=== PATIENT | male | born 1965 | race Two or more races ===

== ENCOUNTER 2017-10-05 16:30 | Emergency (ER) | payer OTHER ==
[~2017-10-05] VITALS: Ht 175.3 cm; Wt 118.4 kg
[~2017-10-05 16:30] MED LIST: CIPROFLOXACIN500 M2 ORAL
[2017-10-05] MEDS ORDERED: TRAZODONE HCL50 MG ORAL (16:57)
[2017-10-05] MEDS ORDERED: OMEPRAZOLE40 M1 ORAL (16:57)
[2017-10-05] MEDS ORDERED: DOCUSATE SODIU100 M2 ORAL (16:57)
[2017-10-05] MEDS ORDERED: BENAZEPRIL HCL40 MG ORAL (16:57)
[2017-10-05] MEDS ORDERED: SEROQUEL XR150 MG ORAL (16:57)
[2017-10-05] MEDS ORDERED: BUPROPION HCL150 M3 ORAL (16:57)
[2017-10-05] MEDS ORDERED: ASPIR 8181 MG ORAL (16:57)
[2017-10-05] MEDS ORDERED: NEURONTIN300 MG ORAL (16:57)
[2017-10-05] MEDS ORDERED: HYDROXYZINE HCL50 M1 PO (16:59)
[2017-10-05] MEDS ORDERED: SENNA8.6 M2 PO (16:59)
[2017-10-05] MEDS ORDERED: traMADol 50mg tab ORAL ONE (17:00)
[2017-10-05] MEDS ORDERED: IBUPROFEN600 MG ORAL (18:13)
[2017-10-05 18:20] VITALS: BP 135/80
--- NOTE | 2017-10-05 20:32 | Emergency Room Report ---
History of Present Illness General Chief Complaint: Multiple Trauma/Fall Source: Patient Present Illness HPI The patient is a 52-year-old male presenting for left shoulder pain after falling 4 days prior. He states that he tripped and fell onto outstretched hand. Pain is a 7/10 dull ache to the left shoulder and radiates down to the hand. Worse with movement. He states that he fractured his shoulder approximately 10 years prior. No surgery. He denies other symptoms including N , V, F, chills, rash, numbness/tingling, CP, SOB Allergies: Coded Allergies: No Known Allergies (Unverified , 02/27/14) Patient History Past Medical History: see triage record Pertinent Family History: none Reviewed Nursing Documentation: PMH: Agreed, PSxH: Agreed Nursing Documentation-PMH Hx Hypertension: Yes Hx Gastrointestinal Problems: Yes - Hepatitis C, Liver Cirrhosis Review of Systems All Other Systems: negative except mentioned in HPI Physical Exam Vital Signs Date Time Temp Pulse Resp B/P (MAP) Pulse Ox O2 Delivery O2 Flow Rate FiO2 10/05/17 16:40 98.1 70 16 133/74 96 Room Air Sp02 EP Interpretation: reviewed, normal General Appearance: no apparent distress, alert, GCS 15, non-toxic Head: normocephalic, atraumatic Eyes: bilateral eye normal inspection, bilateral eye PERRL ENT: hearing grossly normal, normal pharynx, no angioedema, normal voice Musculoskeletal: back normal, gait/station normal, decreased range of motion - l shoulder, tender - L anterior deltoid Neurologic: alert, oriented x3, responsive, motor strength/tone normal, sensory intact, speech normal Psychiatric: judgement/insight normal, memory normal, mood/affect normal, no suicidal/homicidal ideation Skin: normal color, no rash, warm/dry, well hydrated Lymphatic: no adenopathy Procedures Splinting Splinting : Consent: Verbal Location: l shoulder Pre-Made Type: sling Pre-Proc Neuro Vasc Exam: normal Post-Proc Neuro Vasc Exam: normal Patient Tolerated: Well Complications: None Medical Decision Making PA Attestation Dr. Sage is my supervising physician. Patient management was discussed with my supervising physician Diagnostic Impression: Primary Impression: Shoulder pain, left Qualified Codes: M25.512 - Pain in left shoulder ER Course The patient is a 52-year-old male presenting for left shoulder pain after falling 4 days prior Ddx considered include but not limited to sprain/strain, fracture, contusion Physical exam: No apparent distress Left shoulder: No obvious deformity. No edema or ecchymosis. There is tenderness to palpation over anterior deltoid. Limited active range of motion. Otherwise unremarkable X-ray of the left shoulder shows no acute findings Left arm sling is placed and he'll be discharged home with pain medication. He will followup with primary doctor Other X-Ray Diagnostic Results Other X-Ray Diagnostic Results : X-Ray ordered: L shoulder # of Views/Limited Vs Complete: 3 View Indication: Pain EP Interpretation: Yes RAKAN Xray: Interpretation reviewed, by supervising MD, and agrees with findings. Interpretation: no dislocation, no soft tissue swelling, no fractures Impression: No acute disease Electronically Signed by: Zander Cagle PA-C Last Vital Signs Date Time Temp Pulse Resp B/P (MAP) Pulse Ox O2 Delivery O2 Flow Rate FiO2 10/05/17 18:20 98.1 75 17 135/80 98 Room Air Status: improved Disposition: HOME, SELF-CARE Condition: Improved Scripts Ibuprofen* (MOTRIN*) 600 Mg Tablet 600 MG ORAL Q8H Y for For Pain, #30 TAB 0 Refills Prov: ZANDER CAGLE 10/05/17 Patient Instructions: Shoulder Pain Additional Instructions: I discussed my findings with the patient. All questions and concerns have been answered. Treatment and medication compliance have been addressed. I advised the patient that they need to follow up with PMD in 3-5 days. Return to ED if pain remains or worsens, numbness or tingling occurs, new rash is noticed, fever is noticed, or if needed for any reason. Patient verbalized understanding of discharge instructions. ZANDER CAGLE Oct 05, 2017 20:31
--- NOTE | 2017-10-06 09:53 | Diagnostic Imaging Report ---
Indication: PAIN Technique: XRAY SHOULDER MIN 3V LEFT Comparison: None. Findings: The bones are intact. No fracture. No bone destruction. No evidence of dislocation. There is osteophyte formation at the glenohumeral joint. Impression: Osteoarthrosis. Otherwise negative.
== END 2017-10-05 18:20 | disposition home or self-care (01) ==
LOC: EMR 17:13
DX: M25.512 Pain in left shoulder (principal); Y92.9 Unspecified place or not applicable; W01.0XXA Fall on same level from slipping, tripping and stumbling without subsequent striking against object, initial encounter; M19.012 Primary osteoarthritis, left shoulder; I10 Essential (primary) hypertension; K74.60 Unspecified cirrhosis of liver
CPT/HCPCS: 29240; 99283

== ENCOUNTER 2020-08-14 19:32 | Emergency (ER) | payer OTHER ==
[~2020-08-14] VITALS: Ht 175.3 cm; Wt 264.4 kg
[~2020-08-14 19:32] MED LIST changes: +ASPIR 8181 MG ORAL; +BENAZEPRIL HCL40 MG ORAL; +BUPROPION HCL150 M3 ORAL; +DOCUSATE SODIU100 M2 ORAL; +HYDROXYZINE HCL50 M1 PO; +IBUPROFEN600 MG ORAL; +NEURONTIN300 MG ORAL; +OMEPRAZOLE40 M1 ORAL; +SENNA8.6 M2 PO; +SEROQUEL XR150 MG ORAL; +TRAZODONE HCL50 MG ORAL
[2020-08-14 20:00] VITALS: BP 141/74
--- NOTE | 2020-08-14 20:00 | NUR ---
ED Nurse Note: Patient walked into ED from home for c/o L big toe pain x 3 days. Patient states he has an ingrown toenail and then yesterday he injured it by stubbing the big toe which made the pain worse. He is aaox4, breathing is normal and unlabored. Pt is ambulatory with steady gait.
[2020-08-14] MEDS ORDERED: Lidocaine 1% MPF 10mg/ml 5ml INJ ONE (20:15)
[2020-08-14] MEDS ORDERED: Neosporin Oint Ud Pkt TOPIC ONE (20:15)
--- NOTE | 2020-08-14 20:51 | Diagnostic Imaging Report ---
EXAM: XR Left Foot Complete, 3 or More Views CLINICAL HISTORY: TRAUMA TECHNIQUE: Frontal, lateral and oblique views of the left foot. COMPARISON: No previous studies. FINDINGS: Limitations: Limited evaluation of the toes due to overexposure. Bones/joints: Mild hallux valgus deformity. Mild to moderate osteoarthritic changes. Grossly, no acute fracture or dislocation is noted including the base of the left fifth metatarsal. 0.3 cm anterior spur. Soft tissues: Unremarkable. No radiopaque foreign body. IMPRESSION: 1. Markedly limited evaluation of the toes due to overexposure. 2. Osteoarthritic changes. 3. No acute fracture is detected. 4. Due to the limited nature of the current study, if there is concern for subtle abnormalities, magnetic resonance imaging or CT imaging of the foot should be considered.
--- NOTE | 2020-08-14 21:30 | NUR ---
ED Nurse Note: Patient tolerated removal of nail well; without complication. Pt notes decreased pain. Pt big toe bandaged by tech.
--- NOTE | 2020-08-14 21:40 | Emergency Room Report ---
History of Present Illness General Chief Complaint: General Complaint Source: Patient Present Illness HPI The patient presents with toe and foot pain. He had some increased swelling there but then banged the big toe in the shower. The pain became fairly extreme after this and has persisted. In addition he is noted increased swelling of his foot up to his ankle. The pain radiates somewhat into the ankle area but is mostly in his toe and foot. He is able to ambulate without limp. The pain is rated 8/10. It is aching, pressure in the toe and somewhat sharp. He denies any numbness. The patient has had athlete's foot in the past. There is a rash on the foot. In addition he has some scrapes along the ankle. He denies fevers or chills. The patient denies exposure to Covid positive contacts. No sore throat, chest pain, palpitations, nausea, vomiting, diarrhea, dysuria, abdominal pain, shortness of breath, depression, anxiety, visual changes, dizziness, headache. The patient denies diabetes. His last tetanus was 2012. Allergies: Uncoded Allergies: PCN (Allergy, Unknown, 08/14/20) COVID-19 Screening Contact w/high risk pt: No Experienced COVID-19 symptoms?: No COVID-19 Testing performed BILINGUAL INSTRUCTOR: No Patient History Past Medical History: see triage record Social History: Denies: smoking Social History Narrative Care provider Reviewed Nursing Documentation: PMH: Agreed; PSxH: Agreed Nursing Documentation-PMH Hx Hypertension: Yes Hx Gastrointestinal Problems: Yes - Hepatitis C, Liver Cirrhosis Review of Systems All Other Systems: negative except mentioned in HPI Physical Exam Vital Signs Date Time Temp Pulse Resp B/P (MAP) Pulse Ox O2 Delivery O2 Flow Rate FiO2 08/14/20 19:49 98.2 74 18 141/74 (96) 96 Room Air Sp02 EP Interpretation: reviewed, normal General Appearance: well appearing, no apparent distress, GCS 15, obese Head: normocephalic Eyes: bilateral eye normal inspection, bilateral eye PERRL, bilateral eye EOMI ENT: other - Wearing a mask Neck: full range of motion, supple Cardiovascular #1: regular rate, rhythm Cardiovascular #2: 2+ radial (R), 2+ dorsalis pedis (L) Gastrointestinal: normal inspection Musculoskeletal: gait/station normal Neurologic: alert Procedures Additional Procedure Procedure Narrative Wedge resection of toenail: The left big toe is prepped with Betadine and a digital block was performed with plain lidocaine approximately 4 cc infused. After appropriate anesthesia the toe was again prepped with Betadine and draped. Wedge resection of the lateral toenail was performed. There was minimal bleeding. The wound was irrigated with normal saline. There was no pus expressed. The wound was dressed by the emergency room radar technician. The patient tolerated the procedure well. Medical Decision Making Diagnostic Impression: Primary Impression: Toe contusion Qualified Codes: S90.212A - Contusion of left great toe with damage to nail, initial encounter Additional Impressions: Tinea pedis Qualified Codes: B35.3 - Tinea pedis Venous disease Wedge resection of toenail BMI 70 and over, adult ER Course The patient presents with left great toe pain and foot swelling after trauma although there was some discomfort prior to the injury. Differential includes toe fracture, paronychia him, cellulitis amongst others. Evaluation with Accu- Chek, left foot x-ray. The patient is treated with Bactrim. In addition wedge resection of the ingrown toenail is indicated. The physical diagnosis is not clear for paronychia. See procedure note. Accu-Chek 96. X-ray without fracture. Discussed treatment plan with patient. Discussed the need for follow-up with a inspector automatic typewriter. Patient improved and stable for outpatient observation and treatment. Other X-Ray Diagnostic Results Other X-Ray Diagnostic Results : X-Ray ordered: L foot # of Views/Limited Vs Complete: 3 View Indication: Other EP Interpretation: Yes Interpretation: no dislocation, no fractures, other - STS Impression: Other Electronically Signed by: Electronically signed by Dennis Jenkins MD Last Vital Signs Date Time Temp Pulse Resp B/P (MAP) Pulse Ox O2 Delivery O2 Flow Rate FiO2 08/14/20 22:10 98.2 70 18 138/75 98 Room Air Status: improved Disposition: HOME, SELF-CARE Condition: Improved Scripts Ibuprofen* (MOTRIN*) 600 Mg Tablet 600 MG ORAL Q6H PRN for FOR PAIN, #20 TAB 0 Refills Prov: Dennis Jenkins MD 08/14/20 Bacitracin (Bacitracin) 28.4 Gm Oint...g. 1 APPLIC TOPIC BID, #20 GM Prov: Dennis Jenkins MD 08/14/20 Tolnaftate (Tolnaftate) 15 Gm Cream..g. 1 APPLIC TOPIC BID, #30 APPLIC Prov: Dennis Jenkins MD 08/14/20 Trimethoprim/Sulfamethoxazole 160/800* (BACTRIM DS TABLET*) 1 Each Tablet 1 TAB ORAL Q12H, #14 TAB 0 Refills Prov: Dennis Jenkins MD 08/14/20 Referrals: NON PHYSICIAN (PCP) Dennis Jenkins MD Aug 14, 2020 21:40
[2020-08-14] MEDS ORDERED: Bactrim-DS 1 tab ORAL ONE (21:45)
[2020-08-14] MEDS ORDERED: BACITRACIN15 GM TOPIC (22:02)
[2020-08-14] MEDS ORDERED: IBUPROFEN600 M1 ORAL (22:02)
[2020-08-14] MEDS ORDERED: BACTRIM DS TAB1 EAC1 ORAL (22:02)
[2020-08-14] MEDS ORDERED: TINACTIN 1%1 APPLIC TOPIC (22:02)
[2020-08-14 22:10] VITALS: BP 138/75
--- NOTE | 2020-08-14 22:10 | NUR ---
ER DISCHARGE NOTE: Patient is cleared to be discharged per ERMD, pt is aox4, on room air, with stable vital signs. pt was given dc and prescription instructions, pt was able to verbalize understanding, pt id band removed. pt is able to ambulate with steady gait with cane. pt took all belongings.
== END 2020-08-14 22:10 | disposition home or self-care (01) ==
LOC: EMR 20:13
DX: S90.212A Contusion of left great toe with damage to nail, initial encounter (principal); B35.3 Tinea pedis; I87.9 Disorder of vein, unspecified; E66.9 Obesity, unspecified; Z68.45 Body mass index [BMI] 70 or greater, adult; W22.8XXA Striking against or struck by other objects, initial encounter; Y92.9 Unspecified place or not applicable; K74.60 Unspecified cirrhosis of liver; I10 Essential (primary) hypertension; Z86.19 Personal history of other infectious and parasitic diseases; L60.0 Ingrowing nail; Z88.0 Allergy status to penicillin
CPT/HCPCS: 11750; 73630; 82962; Z7502; 99283